=== PATIENT | male | born 1990 | race Caucasian/White ===

== ENCOUNTER 2021-03-05 05:14 | Emergency (ER) | payer MEDICAID ==
--- NOTE | 2021-03-05 06:10 | EDM.PDOC ---
ED HPI GENERAL MEDICAL PROBLEM - General Stated Complaint: SHORTNESS OF BREATH, COUGHING Time Seen by Provider: 03/05/21 05:16 - History of Present Illness INITIAL COMMENTS - FREE TEXT/NARRATIVE: HISTORY AND PHYSICAL: History of present illness: Is a 30-year-old gentleman with history significant for hypertension diabetes who presents ER today secondary to a positive Covid exposure. Patient reports that he has had both Covid vaccinations ready. Patient reports he had a slight cough for 2 to 3 days. Patient denies any recent fevers, shakes, chills, nausea, vomiting, diarrhea, dysuria, frequency or urgency, shortness of breath. Review of systems: As per history of present illness and below otherwise all systems reviewed and negative. Past medical history: As per history of present illness and as reviewed below otherwise noncontributory. Surgical history: As per history of present illness and as reviewed below otherwise noncontributory. Social history: No reported history of drug abuse. Family history: As per history of present illness and as reviewed below otherwise noncontributory. Physical exam: This patient was seen and evaluated during the 2019 SARS-CoV-2 novel coronavirus pandemic period. Community viral transmission is ongoing at time of this encounter and the emergency department is operating under pandemic response procedures. Constitutional: Patient is oriented to person, place, and time. Appears well-developed and well-nourished. No distress. HEENT: Moist mucous membranes Head: Normocephalic and atraumatic Eyes: Right eye exhibits no discharge. Left eye exhibits no discharge. No scleral icterus Neck: Normal range of motion. No tracheal deviation present. Cardiovascular: Normal rate and regular rhythm. Pulmonary: Effort normal, no respiratory distress. No wheezing rales or rhonchi. Abdominal: No distention Musculoskeletal: Normal range of motion Neurologic: Alert and oriented to person, place and time. Skin: [place], warm and dry. Psychiatric: Normal mood and affect. Behavior is normal. Judgment and thought content normal. Nursing note and vital signs have been reviewed Diagnostics: Covid test: Positive Therapeutics: I have discussed with the patient the risk and benefits of Regeneron and he is currently amenable to therapy. Form has been faxed to the infusion center. Patient is clinically hemodynamic stable this time for outpatient management of his coronavirus. Assessment and plan: Is a 30-year-old gentleman who presents ER today secondary to Covid exposure. Patient reports that his boyfriend was tested positive earlier today in [facility] for coronavirus and he would like to be tested. Patient is otherwise clinically hemodynamically stable. Patient's pulse oximeter is 97% on room air. Given patient's request, we will go ahead and order Covid test on him and reevaluate after results. Definitive disposition and diagnosis as appropriate pending reevaluation and review of above. - Related Data Allergies Allergy/AdvReac Type Severity Reaction Status Date / Time No Known Allergies Allergy Verified 03/05/21 06:04 Home Meds: Home Meds Insulin Aspart [NovoLOG] 15 units SQ TIDMEALS 03/05/21 [History] Insulin Glarg,Human.Rec.Analog [Lantus Solostar] 100 units SQ DAILY 03/05/21 [History] Sertraline HCl 200 mg PO DAILY 03/05/21 [History] lisinopriL [Lisinopril] 10 mg PO DAILY 03/05/21 [History] metFORMIN HCl [Metformin ER Gastric] 1,000 mg PO BID 03/05/21 [History] ED ROS GENERAL - Review of Systems Review Of Systems: See Below ED EXAM, GENERAL - Physical Exam Exam: See Below Course - Vital Signs Last Recorded V/S: Last Vital Signs Temp 96.8 F L 03/05/21 06:16 Pulse 86 03/05/21 06:16 Resp 18 03/05/21 06:16 BP 138/97 H 03/05/21 06:16 Pulse Ox 97 03/05/21 06:16 - Orders/Labs/Meds Labs: Laboratory Tests 03/05/21 Range/Units 06:10 SARS-CoV-2 RNA (CHELSY) POSITIVE H (NEGATIVE) Departure - Departure Time of Disposition: 07:09 Disposition: Home, Self-Care 01 Condition: Good Clinical Impression: COVID-19 virus infection - Discharge Information Instructions: COVID-19 Frequently Asked Questions, When You've Been Fully Vaccinated: How to Protect Yourself and Others - CDC (10/20/2020), What You Should Know About COVID-19 to Protect Yourself and Others - CDC, COVID-19: Quarantine vs. Isolation - CDC (05/26/2020) Referrals: PCP,None [Primary Care Provider] - Additional Instructions: You were seen and evaluated in ER today secondary to concerns for Covid. Your Covid test is:Positive As we discussed, you are interested in receiving Regeneron. Please read the fact sheet that has been given to you to further answer any questions that you might have. You will be given a phone call by the infusion center on Saturday to give the information regarding time and place of infusion. 1. Your COVID-19 screening is positive. That means you do have the coronavirus and you are considered contagious. Your vital signs and oxygen saturation are well enough that you were able to monitor your symptoms at home. Continue to monitor for trouble breathing, new confusion or inability to arouse, bluish lips or face or any of the other symptoms we discussed -if this occurs please return to the emergency room. 2. Please self quarantine over the next 10 days. Inform any persons that you have been in contact with since you started becoming symptomatic that you have tested positive; they should be made aware and take the appropriate steps as needed. 3. You can take NyQuil during the evening to help get a restful night sleep. May alternate Tylenol and ibuprofen as needed for pain and fever management. 4. The [facility] department will be calling you and following up with you. The [place] COVID 19 Hotline phone number , They are open Saturday - Saturday 7am - 7pm. Follow up with your primary care provider for re-evaluation and re-testing after the 10 day quarantine and discuss when you should be seen. The following information is given to patients seen in the emergency department who are being discharged to home. This information is to outline your options for follow-up care. We provide all patients seen in our emergency department with a follow-up referral. The need for follow-up, as well as the timing and circumstances, are variable depending upon the specifics of your emergency department visit. If you don't have a primary care physician on staff, we will provide you with a referral. We always advise you to contact your personal physician following an emergency department visit to inform them of the circumstance of the visit and for follow-up with them and/or the need for any referrals to a consulting spe cialist. The emergency department will also refer you to a specialist when appropriate. This referral assures that you have the opportunity for follow-up care with a specialist. All of these measure are taken in an effort to provide you with optimal care, which includes your follow-up. Under all circumstances we always encourage you to contact your private physician who remains a resource for coordinating your care. When calling for follow-up care, please make the office aware that this follow-up is from your recent emergency room visit. If for any reason you are refused follow-up, please contact the [facility] Emergency Department at and asked to speak to the emergency department charge nurse. [facility] - [facility] [address] [place] [address] [id number] [address] [address] Sepsis Event Note (ED) - Focused Exam Vital Signs: Vital Signs Temp Pulse Resp BP Pulse Ox 03/05/21 06:16 96.8 F L 86 18 138/97 H 97
== END 2021-03-05 07:35 | disposition home or self-care (01) ==
LOC: MW.ED 05:14
DX: U07.1 COVID-19 (principal); I10 Essential (primary) hypertension; E11.9 Type 2 diabetes mellitus without complications; Z79.4 Long term (current) use of insulin; Z79.899 Other long term (current) drug therapy
CPT/HCPCS: 99284; U0002

== ENCOUNTER 2024-12-07 16:57 | Emergency (ER) | payer MEDICAID ==
[2024-12-07] MEDS: hydrOXYzine HCl 25 MG Tab PO ONE (17:12)
== END 2024-12-07 17:24 | disposition home or self-care (01) ==
LOC: MW.ED 16:57
DX: F41.0 Panic disorder [episodic paroxysmal anxiety] (principal); I10 Essential (primary) hypertension; E11.9 Type 2 diabetes mellitus without complications; Z79.4 Long term (current) use of insulin; Z79.84 Long term (current) use of oral hypoglycemic drugs
CPT/HCPCS: 99284; A9270; 99282

== ENCOUNTER 2025-03-10 03:54 | Emergency (ER) | payer MEDICAID ==
[2025-03-10 04:16] LABS: BASOPHILS ABSOLUTE AUTO 0.04 K/uL (0.00-0.20); BASOPHILS PERCENT AUTO 0.5 % (0.0-1.0); EOSINOPHILS ABSOLUTE AUTO 0.10 K/uL (0.00-0.45); EOSINOPHILS PERCENT AUTO 1.2 % (0.0-6.0); IMMATURE GRAN ABSOLUTE AUTO 0.02 K/uL (0.00-0.05); IMMATURE GRAN PERCENT AUTO 0.2 % (0.0-0.4); LYMPHOCYTES ABSOLUTE AUTO 2.99 K/uL (1.00-4.80); LYMPHOCYTES PERCENT AUTO 36.5 % (24.0-44.0); MEAN PLATELET VOLUME 11.0 fL (9.4-12.4); MONOCYTES ABSOLUTE AUTO 0.47 K/uL (0.00-0.80); MONOCYTES PERCENT AUTO 5.7 % (0.0-8.0); NEUTROPHILS ABSOLUTE AUTO 4.57 K/uL (1.80-7.70); NEUTROPHILS PERCENT AUTO 55.9 % (41.0-71.0); NRBC ABSOLUTE 0.00 K/uL (0.00-0.02); NRBC PERCENT 0.0 /100WBC (0.0-0.2); PLATELET COUNT,PLT 185 K/uL (150-400); RED BLOOD CELL COUNT 5.54 M/uL (4.52-5.90); WHITE BLOOD CELL COUNT,WBC 8.19 K/uL (3.9-11.3)
[2025-03-10 04:48] LABS: A/G RATIO 1.3 (0.9-1.6); ALANINE AMINOTRANSFERASE,ALT 18.0 IU/L (14-63); ASPARTATE AMNIOTRANSFERASE,AST 11.0 IU/L (15-37); BILIRUBIN TOTAL 0.4 mg/dL (0.2-1.0); BLOOD UREA NITROGEN,BUN 27.0 mg/dL (7.0-18.0); CARBON DIOXIDE,CO2 25.9 mmol/L (21.0-32.0); CHLORIDE,CL 103.0 mmol/L (98-107); CREATININE 0.8 mg/dL (0.8-1.3); EST CRCL DRUG DOSING (CG) 119.35 mL/min; GLUCOSE RANDOM 204.0 mg/dL (74-106); POTASSIUM,K 3.9 mmol/L (3.5-5.1); PRO B-TYPE NATRIUR PEPT,BNPPRO 5.0 pg/mL (0-125); PROTEIN TOTAL,TP 7.0 g/dL (6.4-8.2); SODIUM,NA 138.0 mmol/L (136-148)
[2025-03-10 04:51] LABS: ESTIMATED GFR 118.0 mL/min (>60)
== END 2025-03-10 05:44 | disposition home or self-care (01) ==
LOC: MW.ED 03:54
DX: F41.0 Panic disorder [episodic paroxysmal anxiety] (principal); E11.65 Type 2 diabetes mellitus with hyperglycemia; I10 Essential (primary) hypertension; Z59.811 Housing instability, housed, with risk of homelessness; Z79.4 Long term (current) use of insulin; Z79.899 Other long term (current) drug therapy
CPT/HCPCS: 36415; 71045; 80053; 83690; 83735; 83880; 84484; 85025; 93005; 99285; A9270; 93010; 99284